=== PATIENT | female | born 1975 | race African-American/Black ===

== ENCOUNTER 2019-06-25 11:54 | Emergency (ER) | payer OTHER ==
[~2019-06-25] VITALS: Ht 162.6 cm; Wt 89.8 kg
[2019-06-25 11:54] VITALS: BP 149/108
[2019-06-25] MEDS ORDERED: IBUPROFEN 800800 M1 PO (12:37)
[2019-06-25] MEDS ORDERED: TESSALON PERLE100 MG PO (12:37)
== END 2019-06-25 12:41 | disposition home or self-care (01) ==
LOC: ER 11:54
DX: J11.1 Influenza due to unidentified influenza virus with other respiratory manifestations (principal); F17.210 Nicotine dependence, cigarettes, uncomplicated

== ENCOUNTER 2020-12-28 16:28 | Emergency (ER) | payer OTHER ==
[~2020-12-28] VITALS: Ht 162.6 cm; Wt 90.3 kg
[~2020-12-28 16:28] MED LIST: IBUPROFEN 800800 M1 PO; TESSALON PERLE100 MG PO
== END 2020-12-28 18:55 | disposition home or self-care (01) ==
LOC: ER 16:28
DX: S01.03XA Puncture wound without foreign body of scalp, initial encounter (principal); F17.210 Nicotine dependence, cigarettes, uncomplicated; W22.8XXA Striking against or struck by other objects, initial encounter; Y93.89 Activity, other specified; Y92.89 Other specified places as the place of occurrence of the external cause; Y99.0 Civilian activity done for income or pay